=== PATIENT | male | born 1940 | race Two or more races ===

== ENCOUNTER 2024-10-08 15:36 | Inpatient (IN) | payer MEDICARE, OTHER ==
[~2024-10-08] VITALS: Ht 167.6 cm; Wt 63.6 kg
[2024-10-08] MEDS ORDERED: ESCI5TAB PO (15:55)
[2024-10-08] MEDS ORDERED: APIX5TAB4 PO (15:55)
[2024-10-08] MEDS ORDERED: CALC-434 PO (15:55)
[2024-10-08] MEDS ORDERED: CHOL500062 PO (15:55)
[2024-10-08] MEDS ORDERED: ATOR20TA PO (15:55)
[2024-10-08] MEDS ORDERED: ALFU10TA PO (15:55)
[2024-10-08] MEDS ORDERED: CYAN-51 PO (15:55)
[2024-10-08] MEDS: AZITHROMYCIN IV 500 MG in IV DEXTROSE 5% 250 ML IV ONE (16:00)
[2024-10-08 16:22] LABS: PLATELET COUNT (AUTO) 264 K/uL (152-348); RED BLOOD CELL COUNT(AUTO) 4.23 MIL/uL (4.06-5.63); RED CELL DISTRIBUTION WIDTH 14.2 % (12.1-16.2); WHITE BLOOD COUNT (AUTO) 5.2 K/uL (3.6-10.2)
[2024-10-08] MEDS ORDERED: CEFTRIAXONE /D5W 50ML IVPB **ER PYXIS IV ONE (16:28)
[2024-10-08] MEDS ORDERED: AZITHROMYCIN 500MG/ D5W 250ML IVPB **ER PYXIS ONLY IV ONE (16:28)
[2024-10-08 16:31] LABS: CREATININE 0.7 mg/dL (0.6-1.3); SODIUM SERUM 139 mmol/L (136-145); UREA NITROGEN, BLOOD 27 mg/dL (7-18)
[2024-10-08 16:35] LABS: ABG BASE EXCESS 4.1 mmol/L (-2.0-3.0); ABG HCO3 28.7 mmol/L (21.0-28.0); ABG PCO2 42.7 mmHg (35.0-48.0); ABG PH 7.445 (7.350-7.450); ABG PO2 < 40.5 mmHg (83.0-108.0); ABG SITE RIGHT RADIAL; ABG TOTAL HEMOGLOBIN 13.8 G/dL (13.5-17.5); AaDO2 76.7 mmHg; FIO2 21.0 %; FLOW, BLOOD GAS 0.00 L/min (0.00-30.00)
[2024-10-08 16:37] LABS: ASPARTATE AMINOTRANSFERASE 17 U/L (15-37); TOTAL PROTEIN, SERUM 5.6 g/dL (6.4-8.2)
[2024-10-08] MEDS: IV NORMAL SALINE 1000 ML BAG IV ONE (16:40)
[2024-10-08] MEDS: CEFTRIAXONE 1 G in IV DEXTROSE 5% 50 ML IV ONE (16:41)
[2024-10-08 19:09] LABS: ETHANOL < 3 MG/DL (0-10)
[2024-10-08 19:39] LABS: *BILIRUBIN,URIN NEGATIVE (NEGATIVE); *BLOOD, URINE TRACE (NEGATIVE); *CLARITY,URINE CLEAR (CLEAR); *COLOR,URINE DARK YELLOW (YELLOW); *KETONES,URINE NEGATIVE (NEGATIVE); *PROTEIN,URINE NEGATIVE (NEGATIVE); *UROBILINOGEN,URINE 1.0 E.U./dl (NORMAL); LEUKOCYTE ESTERASE ,URINE NEGATIVE (NEGATIVE); NITRITE, URINE NEGATIVE (NEGATIVE); UGLUCOSE TRACE (NEGATIVE)
[2024-10-08 19:49] LABS: *AMPHETAMINE, URINE NEGATIVE (NEGATIVE); *BARBITURATE, URINE NEGATIVE (NEGATIVE); *BENZODIAZEPINE, URINE NEGATIVE (NEGATIVE); *CANNABINOID, URINE NEGATIVE (NEGATIVE); *COCCAINE, URINE NEGATIVE (NEGATIVE); *OPIATE, URINE NEGATIVE (NEGATIVE); *PHENCYCLIDINE SCREEN,URINE NEGATIVE (NEGATIVE); FENTANYL, URINE NEGATIVE (NEGATIVE)
[2024-10-08 19:51] LABS: CALCIUM OXALATE CRYSTALS,UR MODERATE /HPF (NONE SEEN); SQUAMOUS EPITHELIAL CELL,UR FEW /HPF (NONE SEEN)
[2024-10-08] MEDS ORDERED: ACETAMINOPHEN 325 MG TABLET PO PRN (20:00)
[2024-10-08] MEDS ORDERED: MAGNESIUM HYDROXIDE 30 ML LIQUID UDC PO PRN (20:00)
[2024-10-08] MEDS ORDERED: ALBUTEROL SULFATE 2.5 MG/3 ML NEBU NEB PRN (20:00)
[2024-10-08] MEDS ORDERED: ENOXAPARIN SODIUM 40 MG/0.4 ML DISP.SYRIN SQ SCH (20:00)
[2024-10-08] MEDS ORDERED: ONDANSETRON 4 MG/2 ML VIAL IV PRN (20:00)
[2024-10-08 21:24] VITALS: BP 124/67; TEMP 97.7; O2SAT 93
[2024-10-08 22:00] VITALS: O2SAT 95
[2024-10-08] MEDS: IV NS 1000 ML 1,000 ML IV PRN (22:11)
[2024-10-08] MEDS: ENOXAPARIN SODIUM 40 MG/0.4 ML DISP.SYRIN SQ SCH (22:12)
[2024-10-08 23:45] VITALS: BP 97/51; TEMP 97.6; O2SAT 98
[2024-10-09 05:33] VITALS: BP 124/85; TEMP 98.1; O2SAT 95
[2024-10-09 07:17] LABS: PLATELET COUNT (AUTO) 243 K/uL (152-348); RED BLOOD CELL COUNT(AUTO) 3.58 MIL/uL (4.06-5.63); RED CELL DISTRIBUTION WIDTH 14.1 % (12.1-16.2); WHITE BLOOD COUNT (AUTO) 4.3 K/uL (3.6-10.2)
[2024-10-09 07:31] VITALS: BP 129/62; TEMP 97.9; O2SAT 95
[2024-10-09] MEDS: PANTOPRAZOLE SODIUM 40 MG TABLET.DR PO SCH (07:35)
[2024-10-09 07:42] LABS: ASPARTATE AMINOTRANSFERASE 19 U/L (15-37); CREATININE 0.6 mg/dL (0.6-1.3); SODIUM SERUM 140 mmol/L (136-145); TOTAL PROTEIN, SERUM 4.9 g/dL (6.4-8.2); UREA NITROGEN, BLOOD 19 mg/dL (7-18)
[2024-10-09] MEDS ORDERED: APIX5TAB PO (09:57)
[2024-10-09] MEDS ORDERED: CHOL-35 PO (09:57)
[2024-10-09 11:34] VITALS: BP 104/49; TEMP 98.1; O2SAT 97
[2024-10-09] MEDS: AZITHROMYCIN IV 500 MG in IV DEXTROSE 5% 250 ML IV SCH (15:47)
[2024-10-09 15:53] VITALS: BP 94/44; TEMP 98.4; O2SAT 95
[2024-10-09] MEDS: CEFTRIAXONE 1 G in IV DEXTROSE 5% 50 ML IV SCH (16:57)
[2024-10-09] MEDS: ENSURE WITH FIBER 237 ML LIQUID (CHOCOLATE) PO SCH (17:38)
[2024-10-09 19:15] VITALS: BP 102/56; TEMP 98.5; O2SAT 93
[2024-10-09] MEDS ORDERED: CEFTRIAXONE 1 G in IV DEXTROSE 5% 50 ML IV SCH (20:00)
[2024-10-09] MEDS ORDERED: AZITHROMYCIN IV 500 MG in IV DEXTROSE 5% 250 ML IV SCH (20:00)
[2024-10-09] MEDS: ATORVASTATIN 20 MG TABLET PO SCH (20:30)
[2024-10-09] MEDS: APIXABAN 5 MG TABLET PO SCH (20:30)
[2024-10-10 00:37] VITALS: BP 120/61; TEMP 98.3; O2SAT 93
[2024-10-10 07:33] VITALS: BP 143/79; TEMP 98.4; O2SAT 96
[2024-10-10 08:12] LABS: PLATELET COUNT (AUTO) 231 K/uL (152-348); RED BLOOD CELL COUNT(AUTO) 3.59 MIL/uL (4.06-5.63); RED CELL DISTRIBUTION WIDTH 14.1 % (12.1-16.2); WHITE BLOOD COUNT (AUTO) 5.0 K/uL (3.6-10.2)
[2024-10-10 08:27] LABS: CREATININE 0.6 mg/dL (0.6-1.3); SODIUM SERUM 140 mmol/L (136-145); UREA NITROGEN, BLOOD 12 mg/dL (7-18)
[2024-10-10] MEDS: CALCIUM CARB/VITAMIN D 500MG-200UNITS TABLET PO SCH (08:46)
[2024-10-10] MEDS: ALFUZOSIN HCL 10 MG TAB.SR.24H PO SCH (08:46)
[2024-10-10] MEDS: CYANOCOBALAMIN 1,000 MCG TABLET PO SCH (08:47)
[2024-10-10] MEDS: CHOLECALCIFEROL 1,000 UNIT TABLET PO SCH (08:47)
[2024-10-10] MEDS ORDERED: CALCIUM CARBONATE PO SCH (09:00)
[2024-10-10] MEDS ORDERED: VITAMIN D3 PO SCH (09:00)
[2024-10-10] MEDS ORDERED: [UNRECOGNIZED DRUG - OTHER] PO SCH (09:00)
[2024-10-10] MEDS ORDERED: LEVO250T59 PO (11:04)
[2024-10-10 11:34] VITALS: BP 120/61; TEMP 98.6; O2SAT 95
[2024-10-10] MEDS: NEUTRA PHOS PACKET PO ONE (11:46)
[2024-10-13] MEDS ORDERED: ESCITALOPRAM OXALATE 10 MG TABLET PO SCH (09:00)
== END 2024-10-10 15:15 | disposition home health service (06) | DRG 177 ==
LOC: ER 15:36 → TELE3 20:43
PROVIDERS: ADMIT Nurse Practitioner Family; ATTEND Nurse Practitioner Family
DX: J15.69 Pneumonia due to other Gram-negative bacteria (principal); J96.01 Acute respiratory failure with hypoxia; D68.59 Other primary thrombophilia; E87.1 Hypo-osmolality and hyponatremia; E44.1 Mild protein-calorie malnutrition; J91.8 Pleural effusion in other conditions classified elsewhere; G93.40 Encephalopathy, unspecified; I48.0 Paroxysmal atrial fibrillation; E88.09 Other disorders of plasma-protein metabolism, not elsewhere classified; Z87.01 Personal history of pneumonia (recurrent); Z79.01 Long term (current) use of anticoagulants; Z79.899 Other long term (current) drug therapy; H91.8X3 Other specified hearing loss, bilateral; I95.9 Hypotension, unspecified; S50.311A Abrasion of right elbow, initial encounter; S80.811A Abrasion, right lower leg, initial encounter; W19.XXXA Unspecified fall, initial encounter; Y92.89 Other specified places as the place of occurrence of the external cause; Z86.718 Personal history of other venous thrombosis and embolism; I10 Essential (primary) hypertension; E78.5 Hyperlipidemia, unspecified; R29.6 Repeated falls; F41.9 Anxiety disorder, unspecified
CPT/HCPCS: 36415; 36600; 70450; 71045; 71250; 83605; 83735; 84100; 84443; 84484; 85025; 85730; 87040; 87086; 93307; A4606; A4663; G0378; G0480; J0456; J0696; J1650; J7040; J7050; J8499